=== PATIENT | female | born 1980 | race Caucasian/White ===

== ENCOUNTER 2020-03-08 19:30 | Emergency (ER) | payer MEDICAID ==
[~2020-03-08] VITALS: Ht 157.5 cm; Wt 40.8 kg
[2020-03-08 19:37] VITALS: Ht 157.5 cm; Wt 40.8 kg
[2020-03-08 21:53] LABS: microscopic required? YES; urine erythrocyte 2+ (NEGATIVE)
[2020-03-08 22:00] VITALS: BP 107/64
== END 2020-03-08 22:00 | disposition home or self-care (01) ==
LOC: ED 19:30
PROVIDERS: Student in an Organized Health Care Education/Training Program
DX: R19.7 Diarrhea, unspecified (principal); R10.30 Lower abdominal pain, unspecified
CPT/HCPCS: Q0162